=== PATIENT | female | born 1940 | race Two or more races ===

== ENCOUNTER → 2022-05-03 | Outpatient (CLI) | payer MEDICARE, BC ==
[~2022-05-03] MED LIST: AMIO100T5 PO; AMLO25TA PO; ATOR1TAB21 PO; CALCTAB89 PO; DULO1CAP4 PO; ELIQ2.5T PO; FENO1TAB41 PO; FLUT15.820 NARES; GERILIQ7 PO; IPRA3SP NARES; LEVOTAB10 PO; METO1TAB87 PO; MONT10TA97 PO; SYNT100T PO
[2022-05-03 15:00] VITALS: BP 130/84
== END ==
LOC: M WHCPRO 13:16
PROVIDERS: ATTEND Surgery
DX: N63.13 Unspecified lump in the right breast, lower outer quadrant (principal)

== ENCOUNTER → 2022-05-08 | Outpatient (CLI) | payer MEDICARE, BC | LOC: M PLALAB 15:21 | PROVIDERS: ATTEND Nurse Practitioner Women's Health | DX: Z13.9 Encounter for screening, unspecified (principal); Z80.3 Family history of malignant neoplasm of breast; Z80.1 Family history of malignant neoplasm of trachea, bronchus and lung; Z80.42 Family history of malignant neoplasm of prostate; Z92.23 Personal history of estrogen therapy ==

== ENCOUNTER → 2022-09-25 | Outpatient (CLI) | payer MEDICARE, BC | LOC: M WHC 12:36 | PROVIDERS: ATTEND Surgery | DX: Z53.9 Procedure and treatment not carried out, unspecified reason (principal) ==

== ENCOUNTER → 2022-09-25 | Outpatient (CLI) | payer MEDICARE, BC | LOC: M WHC 12:32 | PROVIDERS: ATTEND Nurse Practitioner Women's Health | DX: D24.1 Benign neoplasm of right breast (principal) | CPT/HCPCS: 77066; G0279 ==